=== PATIENT | female | born 1940 | race Hispanic/Latino ===

== ENCOUNTER 2017-08-04 07:37 | Day surgery (SDC) | payer MEDICARE, OTHER ==
[2017-07-24 10:07] VITALS: BMI 33.6
--- NOTE | 2017-08-03 02:55 | HP ---
REASON FOR ADMISSION: Left heart abnormal stress test. BRIEF CLINICAL HISTORY: This is a 77-year-old female with a past medical history of significant for coronary artery disease status post TN in 1995, status post PTCA in 2005 as well. Has a recent abnormal stress test because of abnormal chest pain and dyspnea on exertion. The patient is scheduled for elective cardiac cath, possible angioplasty. PAST MEDICAL HISTORY: Significant for coronary artery disease, hypertension, hyperlipidemia and history of stent in 2005 and 1995. PREVIOUS CARDIAC WORKUP: As follows: The patient had a cardiac catheterization on 02/25/2013 that shows diffuse atherosclerotic burden in coronaries, but no focal stenosis. Patent previous PTCA site, preserved ejection fraction 55%. Medical treatment recommended dated 02/25/2013. At that time, ejection fraction reported 55% and LV diastolic pressure 12 and left main shows essentially large, free of significant disease, bifurcate LAD and circumflex, LAD 50% stenosis noted in the mid segment where 30% to 40% stenosis noted in the circumflex in the proximal segment and 50% stenosis in the distal RCA, but no flow obstruction is noted, medical treatment recommended. Most recently, the patient had a stress test dated 07/07/2017 that shows partially reversible anterior defect suspicious for ischemia. When compared from previous stress test 04/13/2014, previously noted field defect appears to be reversible. Reversibility noted in anterior wall. CURRENT MEDICATIONS: The patient is taking Crestor 10 mg, aspirin 81 mg, amlodipine 10 mg, benazepril 20 mg, Ambien 12.5, AcipHex 20 mg, levothyroxine 0.137 mg daily, hydrochlorothiazide 1 tablet daily 25 mg, Zetia 10 mg, Colace 100 mg, Plavix 75 mg, and atenolol 50 mg. ALLERGIES: NO KNOWN DRUG ALLERGIES. REVIEW OF SYSTEMS: As per HPI. PHYSICAL EXAMINATION VITAL SIGNS: Height of the patient is 5 feet 3 inches, weight of the patient is 191 pounds, body mass index is 33.2 kg/m2, heart rate 80, and blood pressure 130/80. HEENT: PERRLA. Extraocular muscles are intact. NECK: Supple. No carotid bruits or thyromegaly. CHEST: Clear to auscultation. HEART: S1 and S2 regular. ABDOMEN: Soft. EXTREMITIES: Clubbing and cyanosis negative. IMPRESSION: Abnormal stress test showing anterior wall ischemia ejection fraction preserved. The patient had also echocardiography in 07/01/2017 that shows ejection fraction 55%, trace pulmonary insufficiency, trace aortic regurgitation, mild mitral regurgitation, moderate tricuspid regurgitation, and right ventricular systolic pressure 42. The patient had bilateral carotid Duplex that shows [id number] plaque in both internal carotid arteries and common carotid artery with stenosis 40% to 59%, history of percutaneous transluminal coronary angioplasty in 2005 and 1995, hypertension, and hyperlipidemia. RECOMMENDATIONS: Risks, benefits, and alternatives were discussed with the patient. Patient agreed. We will proceed for cardiac catheterization. Further recommend after the cardiac catheterization. We will get the blood workup and proceed for cardiac catheterization. Edgar Momin MD
[2017-08-04 08:10] LABS: BASO # 0.04 K/mm3 (0.0-2.0); BASO % 0.7 % (0.0-3.0); EOS # 0.3 (0.0-0.7); EOS % 4.9 % (1.5-5.0); GRAN # 2.93 (1.4-6.5); GRAN % 51.1 % (50.0-68.0); HEMOGLOBIN 13.8 g/dL (12.0-16.0); LYMPH % 34.9 % (22.0-35.0); MEAN CELL VOLUME 96.7 fl (80.0-105.0); MEAN CORPUSCULAR HEMOGLOBIN 32.3 pg (25.0-35.0); MEAN CORPUSCULAR HGB CONC 33.4 g/dl (31.0-37.0); MEAN PLATELET VOLUME 9.3 fl (7.0-11.0); MONO # 0.5 (0.1-0.6); MONO % 8.4 % (1.0-6.0); RBC 4.27 10^6/uL (3.5-6.1); RED CELL DISTRIBUTION WIDTH 13.2 % (11.5-14.5); WHITE BLOOD COUNT 5.7 10^3/ul (4.5-11.0)
[2017-08-04 08:24] LABS: CALCIUM 9.4 mg/dL (8.4-10.5)
[2017-08-04 08:44] LABS: PARTIAL THROMBOPLASTIN TIME 32.1 Seconds (25.1-36.5); PROTHROMBIN TIME 11.5 SECONDS (9.4-12.5)
[2017-08-04] MEDS ORDERED: Phenylephrine 10 mg/ml Inj ONE (11:17)
[2017-08-04] MEDS ORDERED: Iohexol 350mgl/ml 50 ML ONE (11:17)
[2017-08-04] MEDS ORDERED: Iohexol 350 MG/100 ML VIAL ONE (11:17)
[2017-08-04] MEDS ORDERED: Lidocaine 2% Inj (20ml) ONE (11:17)
[2017-08-04] MEDS ORDERED: HEPARIN SODIUM/NS 2,000 ML IV ONE (11:18)
[2017-08-04] MEDS ORDERED: Midazolam 2 MG/2 ML VIAL ONE (11:30)
[2017-08-04] MEDS ORDERED: Adenosine 90 mg/30mL IV ONE (11:59)
[2017-08-04] MEDS ORDERED: Sodium Chloride 0.9% 1,000 ML IV SCH (12:30)
[2017-08-04 13:37] VITALS: TEMP 98.2
[2017-08-04 13:53] VITALS: RESP 19
[2017-08-04 15:36] VITALS: BP 133/71; PULSE 58; O2SAT 96
--- NOTE | 2017-08-04 18:49 | CARD ---
APPROVED REPORT Procedure(s) performed: Left Heart Catheterization FFR of MId LAD......0.86 ( Non significant Stenosis) HISTORY 79%. (EF Method: RADIONUCLIDE), previous diagnostic cath, tobacco history() : The patient is a former smoker , previous PCI (The PCI date was 07/28/2005), hypertension , dyslipidemia , Anterior defect suspicious of Ischemia. INDICATION The indication(s) include : positive stress test. CASE TECHNIQUE The patient was brought electively to the Cardiac Catheterization Laboratory in a fasting state and was prepped and draped in a sterile manner. The right femoral groin was infiltrated with 2% Lidocaine subcutaneous anesthesia. A 6 Fr x 11 cm Sharda sheath was inserted into the right femoral artery without difficulty. Coronary angiography was performed using coronary diagnostic catheters. The left coronary system was accessed and visualized with a Diagnostic,6 Fr JL 4 catheter. The right coronary system was accessed and visualized with a Diagnostic ,6 Fr JR 4 catheter. The left ventricle was accessed and visualized with a 6 Fr Pigtail catheter. Left ventricular/Aortic Valve gradient assessed on pullback. Left ventriculogram was performed in ERWIN projection. Closure device was deployed with a 6 Fr / 7 Fr MynxGrip without any complications. The patient tolerated the procedure well and there were no complications associated with the procedure. Vessel Analysis The patient's coronary anatomy is right dominant. The left main coronary artery is a medium size vessel with diffuse calcification noted throughout this vessel and without significant stenosis. The left main bifurcates to the left anterior descending and circumflex. The left anterior descending artery is a medium size vessel with diffuse calcification noted throughout this vessel and without significant stenosis. There is a 60% stenosis in the mid segment. The first diagonal branch is a small size vessel with diffuse calcification noted throughout this vessel and with significant stenosis. less than 1.5 mm vessel There is a 70% stenosis in the proximal segment. The circumflex artery is a medium size vessel with diffuse calcification noted throughout this vessel and without significant stenosis. The first obtuse marginal branch is a large size vessel with diffuse calcification noted throughout this vessel and without significant stenosis. patent Stent in Distal OM1 The right coronary artery is a medium size vessel with diffuse calcification noted throughout this vessel and without significant stenosis. Patent stent in proximal to Mid RCA The right posterior descending artery is a medium size vessel with diffuse calcification noted throughout this vessel and without significant stenosis. Left Ventricle The left ventricle is Normal in size with normal contractility. There was no cardiomyopathy. The left ventricular ejection fraction is estimated to be 55-60%. The left ventricular end diastolic pressure is 18-20 mmHg. There was no gradient across the aortic valve upon pullback. PCI Technique Lesion Percutaneous coronary intervention was performed on the first diagnonal branch segment. Conclusion Non obstructive CAD Mid LAD 60%,FFR-.....0.86 ( not significant stenosis) D1 70% stenosis ,small vessel less sergey 1.5 mm in diameter Patent stent in CX(OM1) Patent Stent in Proximal RCA Preserved LV Fx. ef-55-60%,EDP-18-20 mmof Hg. Recommendations Aggressive Medical TherapyCardiac Risk Reduction Program Weight Loss Reduction Program CC; Ashley Licea / Octaviano.
--- NOTE | 2017-08-04 20:24 | CARD ---
APPROVED REPORT EKG Measurement Heart [id number] ID [id number] <Conclusion> Sinus bradycardia Low voltage QRS Nonspecific ST and T wave abnormality Abnormal ECG
--- NOTE | 2017-08-04 20:41 | CARD ---
APPROVED REPORT EKG Measurement Heart [id number] <Conclusion> Normal sinus rhythm Normal ECG
== END 2017-08-04 18:00 | disposition home or self-care (01) ==
LOC: CATH 07:37
PROVIDERS: ATTEND Internal Medicine Cardiovascular Disease
DX: I25.10 Atherosclerotic heart disease of native coronary artery without angina pectoris (principal); I25.2 Old myocardial infarction; I10 Essential (primary) hypertension; E78.5 Hyperlipidemia, unspecified; Z87.891 Personal history of nicotine dependence; Z95.5 Presence of coronary angioplasty implant and graft
CPT/HCPCS: 36415; 80048; 80061; 85025; 85610; 85730; 86850; 86900; 93005; 93458; 99152; 99153; C1760; C1769; C1887; C2629; J0153; J1644 ×2; J2250; J3010; J7040 ×2; Q9967